=== PATIENT | female | born 1945 | race Caucasian/White ===

== ENCOUNTER 2025-01-28 14:10 | Emergency (ER) | payer OTHER, SELFPAY ==
[2025-01-28] VITALS (11 sets, daily range): BP systolic 114–131; BP diastolic 55–88; PULSE 62–76; RESP 14–20; TEMP 36.6; O2SAT 96–100
--- NOTE | ~2025-01-28 | XR_ITS ---
EXAMINATION: XR chest 1V portable Exam Date/Time: 01/28/2025 15:30 CDT HISTORY: pre-syncope Comparison: None. RESULT: Lines, tubes, and devices: Surgical clips over the right chest. Lungs and pleura: Subsegmental airspace disease in the left lung base. Mild left costophrenic angle blunting. Asymmetric diffuse densities in the right and left hemithoraces likely due to rotation. No pneumothorax. Cardiomediastinal silhouette: Stable. Other: No acute osseous or upper abdominal finding. IMPRESSION: Subsegmental left basilar atelectasis/consolidation. Possible small left pleural effusion. Reviewed, dictated and finalized at location K. IMPRESSION: Subsegmental left basilar atelectasis/consolidation. Possible small left pleura l effusion.
--- NOTE | 2025-01-28 14:22 | ECG_ITS ---
Test Date: 2025-01-28 14:24:55 Measurements Intervals [place] Rate: 63 P: 85 CT: 175 QRS: 2 QRSD: 81 T: 24 QT: 393 QTc: 403 Interpretive Statements SINUS RHYTHM LOW QRS VOLTAGE IN PRECORDIAL LEADS ANTEROSEPTAL INFARCT, AGE INDETERMINATE CONSIDER INFERIOR INFARCT, AGE INDETERMINATE BASELINE ARTIFACT- I, III, AVR, AVL, AVF ABNORMAL ECG No previous ECG available for comparison Electronically Signed On 01-28-2025 16:10:01 CDT by Riaz Hackett D.O.
--- NOTE | 2025-01-28 15:14 | ED_ITS ---
HPI - Dizziness General Chief Complaint: Dizziness Stated Complaint: Dizzy Time Seen by Provider: 01/28/25 14:15 History of Present Illness HPI Narrative: 79-year-old female presents with son at bedside via EMS from home for an episode of dizziness. Patient states she was sitting on the couch when she became lightheaded, flushed and developed stomach cramping and the sensation to have a bowel movement. She got up and went to the bathroom, had an episode of diarrhea and contacted EMS. Upon EMS arrival the patient was found to have low blood pressure and was transported to the ED. Upon arrival to ED the patient is normotensive and asymptomatic. She states she feels fine. She denies associated chest pain, shortness of breath, cough or congestion, hemoptysis, abdominal pain, lower extremity edema, palpitations, melena, hematochezia. No history of cardiac disease or heart failure. Related Data Allergies Allergy/AdvReac Type Severity Reaction Status Date / Time No Known Allergies Allergy Verified 01/28/25 14:21 Review of Systems 2 Review of Systems: All systems reviewed & are unremarkable except as noted in HPI and below Exam 2 Narrative: GENERAL: Well-appearing, well-nourished, and in no acute distress. HEAD: Normocephalic, atraumatic. EYES: EOMI. ENT: Nares clear, no rhinorrhea or epistaxis. Mucous membranes moist. NECK: Supple. CHEST: Clear to auscultation. No respiratory distress. HEART: Regular rate and rhythm. No murmur heard. Normal peripheral pulses. ABDOMEN: Soft, nontender, nondistended, normal active bowel sounds. EXTREMITIES: Normal range of motion. No edema. Negative Homans bilaterally SKIN: Warm, dry, no rash. NEURO: No focal deficits. Alert and oriented x3 Course Vital Signs Vital signs: Vital Signs Temperature 97.9 F 01/28/25 14:12 Pulse Rate 67 01/28/25 14:12 Respiratory Rate 19 01/28/25 14:12 Blood Pressure 120/55 L 01/28/25 14:12 Pulse Oximetry 99 01/28/25 14:12 Oxygen Delivery Room Air 01/28/25 14:12 Temperature 97.9 F 01/28/25 14:12 Pulse Rate 72 01/28/25 15:43 Respiratory Rate 16 01/28/25 15:00 Blood Pressure 119/79 01/28/25 15:43 Pulse Oximetry 96 01/28/25 14:47 Oxygen Delivery Room Air 01/28/25 14:12 MDM - Dizziness MDM Narrative Medical decision making narrative: 79-year-old female presents emergency department with son at bedside via EMS from home for a episode of dizziness. Patient was sitting on the couch when she had it episode of lightheadedness and became flushed, had abdominal cramping, went to the bathroom and had an episode of diarrhea. EMS was contacted the patient had low blood pressure upon their arrival. Upon arrival to the ED the patient is normotensive and asymptomatic. She has no complaints. Denies associated chest pain or shortness of breath. No associated cardiac history. EKG shows normal sinus rhythm with rate of 63 ppm, normal IL interval, normal QRS duration, normal QTC, possible Q waves in lead III and anteroseptal leads, no ST elevations or depressions. No prior EKG for comparison. Troponin is undetectable. EKG without leukocytosis. Hemoglobin is 10.4, no prior for comparison. She denies signs or symptoms of GI bleed. Chemistries with elevated BUN to 35 normal creatinine. Patient was given fluids. No electrolyte derangements. Orthostatic vital signs are within normal limits. Chest x-ray shows subsegmental left basilar atelectasis/consolidation with possible small left pleural effusion. Patient denies signs or symptoms of pneumonia. BNP within normal limits when age adjusted, she does not appear volume overloaded. Patient and family at bedside were updated on results. The patient remains asymptomatic and vital signs remained stable. She is ambulatory in the ED with a steady gait and w/o dizziness/lightheadedness. Presentation consistent with vasovagal syncope. [place] syncope risk is -1 (low), [place] syncope risk also low. Pt and family wanting to be discharged. She was advised to stay hydrated and follow up with her PCP. Discussed return precautions. She and her son are agreeable with the plan verbalized understanding. Discharged in stable condition. Lab Data 01/28/25 15:35 01/28/25 15:35 Labs: Lab Results 01/28/25 Range/Units 15:35 WBC 6.0 (4.5-10.0) K/mm3 RBC 3.44 L (4.2-5.4) M/mm3 Hgb 10.4 L (12.0-15.0) g/dL Hct 33.1 L (37.0-47.0) % MCV 96.2 (80-100) fl MCH 30.2 (26-34) pg MCHC 31.4 L (32-36) g/dl RDW 14.2 (11.5-14.5) % Plt Count 188 (150-375) k/mm3 MPV 11.3 H (7.4-10.4) fl Immature Gran % (Auto) 0.2 (0-0.5) % Neut % (Auto) 58.9 (45.5-73.1) % Lymph % (Auto) 25.5 (18.3-44.2) % [place] % (Auto) 10.3 H (2.6-8.5) % Eos % (Auto) 4.3 (0-4.4) % Baso % (Auto) 0.8 (0.2-1.2) % Lymph # (Auto) 1.53 (0.9-3.2) K/mm3 [place] # (Auto) 0.6 (0.1-0.6) K/mm3 Eos # (Auto) 0.3 (0-0.3) K/mm3 Baso # (Auto) 0.1 (0.0-0.1) K/mm3 Abs Immat Gran (auto) 0.01 (0.00-0.031) K/mm3 Absolute Neuts (auto) 3.5 (1.3-6.7) K/mm3 Absolute Nucleated RBC 0.000 (0.0-0.012) K/mm3 Nucleated RBC % 0.0 (0.0-0.2) % PT 14.1 (11.1-14.7) Seconds INR 1.1 APTT 22.7 (22.3-36.8) Seconds Sodium 139 (137-145) mmol/L Potassium 3.6 (3.4-5.0) mmol/L Chloride 106 (98-107) mmol/L Carbon Dioxide 24 (22-30) mmol/L Anion Gap 9 (4-12) mmol/L BUN 35 H (7-17) mg/dL Creatinine 0.77 (0.7-1.0) mg/dL Estim Creat Clear Calc 46 ml/min Estimated GFR > 60 (59 - ) Glucose 122 H (65-110) mg/dL Calcium 8.6 (8.4-10.2) mg/dL Magnesium 1.8 (1.6-2.3) mg/dL Total Bilirubin 0.4 (0.2-1.3) mg/dL AST 39 H (14-36) U/L ALT 34 (6-35) U/L Alkaline Phosphatase 37 L (38-126) U/L Troponin I < 0.012 (0.000-0.034) ng/mL NT-Pro-B Natriuret Pep 322 H (19.9-100) pg/mL Total Protein 6.3 (6.3-8.2) g/dL Albumin 3.6 (3.5-5.1) g/dL Discharge Plan Discharge Clinical Impression: Vasovagal reaction, Normocytic anemia Patient Disposition: Home Condition: Stable Instructions: Antibiotic Form, Lightheadedness (ED) Additional Instructions: You were evaluated in the emergency department for an episode of dizziness. Your presentation is consistent with a vasovagal reaction as discussed. Please make sure to drink plenty of fluids and follow-up closely with your primary care provider. Return to the emergency department if you develop any chest pain shortness of breath, lightheadedness, loss of consciousness, or other concerning symptoms. Patient Language: Slovenian Follow-up/Referrals: Shadia,Moe Lorenzana MD [Primary Care Provider] -
[2025-01-28 15:40] LABS: Basophils Absolute Auto 0.1 K/mm3 (0.0-0.1); Basophils Percent Auto 0.8 % (0.2-1.2); Eosinophils Absolute Auto 0.3 K/mm3 (0-0.3); Eosinophils Percent Auto 4.3 % (0-4.4); Hematocrit 33.1 % (37.0-47.0); Hemoglobin 10.4 g/dL (12.0-15.0); Immature Granulocyte Absolute 0.01 K/mm3 (0.00-0.031); Immature Granulocyte Percent A 0.2 % (0-0.5); Lymphocytes Absolute Auto 1.53 K/mm3 (0.9-3.2); Lymphocytes Percent Auto 25.5 % (18.3-44.2); Mean Corpuscular HGB Conc 31.4 g/dl (32-36); Mean Corpuscular Hemoglobin 30.2 pg (26-34); Mean Corpuscular Volume 96.2 fl (80-100); Mean Platelet Volume 11.3 fl (7.4-10.4); Monocytes Absolute Auto 0.6 K/mm3 (0.1-0.6); Monocytes Percent Auto 10.3 % (2.6-8.5); Neutrophils Absolute Auto 3.5 K/mm3 (1.3-6.7); Neutrophils Percent Auto 58.9 % (45.5-73.1); Platelet Count Result 188 k/mm3 (150-375); Red Blood Count 3.44 M/mm3 (4.2-5.4); Red Cell Distribution Width 14.2 % (11.5-14.5)
[2025-01-28] MEDS: SODIUM CHLORIDE 0.9% IV 1,000 ML 999 ML IV CONT (15:46)
[2025-01-28 15:58] LABS: INR 1.1; Partial Thromboplastin Time 22.7 Seconds (22.3-36.8); Prothrombin Time 14.1 Seconds (11.1-14.7)
[2025-01-28 16:00] LABS: Alanine Aminotransferase 34 U/L (6-35); Albumin Level 3.6 g/dL (3.5-5.1); Alkaline Phosphatase 37 U/L (38-126); Anion Gap 9 mmol/L (4-12); Aspartate Amino Transferase 39 U/L (14-36); Bilirubin,Total 0.4 mg/dL (0.2-1.3); Blood Urea Nitrogen 35 mg/dL (7-17); Calcium 8.6 mg/dL (8.4-10.2); Carbon Dioxide 24 mmol/L (22-30); Chloride 106 mmol/L (98-107); Estimated CRCL calculation 46 ml/min; Estimated Glomerular Filt Rate > 60; Glucose 122 mg/dL (65-110); Magnesium 1.8 mg/dL (1.6-2.3); Potassium 3.6 mmol/L (3.4-5.0); Sodium 139 mmol/L (137-145); Total Protein 6.3 g/dL (6.3-8.2)
[2025-01-28 16:13] LABS: NT Pro B Type Natriuretic Pept 322 pg/mL (19.9-100); Troponin I < 0.012 ng/mL (0.000-0.034)
== END 2025-01-28 17:25 | disposition home or self-care (01) ==
PROVIDERS: Emergency Provider Physician Assistant; PCP Family Medicine
DX: R55 Syncope and collapse (principal); D64.9 Anemia, unspecified
CPT/HCPCS: 36415; 71045; 80053; 83735; 83880; 84484; 85025; 85610; 85730; 93005; 96360; 99284; J7030